=== PATIENT | female | born 1960 | race Caucasian/White ===

== ENCOUNTER → 2016-10-16 | Outpatient (CLI) | payer OTHER | LOC: RAD 10:49 | DX: R05 Cough (principal) | CPT/HCPCS: 71020 ==

== ENCOUNTER → 2016-11-09 | Outpatient (CLI) | payer OTHER | LOC: US 11-03 15:30 → RAD 11-08 08:30 | DX: R13.10 Dysphagia, unspecified (principal); E03.9 Hypothyroidism, unspecified; E04.1 Nontoxic single thyroid nodule; R59.0 Localized enlarged lymph nodes | CPT/HCPCS: 74220; 76536 ==